=== PATIENT | female | born 1930 | race Caucasian/White ===

== ENCOUNTER 2016-10-01 11:35 | Emergency (ER) | payer OTHER ==
[~2016-10-01] VITALS: Ht 165.1 cm; Wt 78.0 kg
[2016-10-01 11:41] VITALS: TEMP 36.9; Ht 165.1 cm; Wt 78.0 kg
[2016-10-01 11:47] VITALS: O2SAT 100
[2016-10-01 12:00] LABS: BASO % 0.2 %; BASO ABS # 0.02 K/uL (0-0.2); COMPLETE YES; EOS % 0.5 %; HEMATOCRIT 35.2 % (37-47); IG% 0.3 %; LYMPH % 30.8 %; LYMPH ABS # 3.05 K/uL (1.2-3.4); MEAN CELL VOLUME 83.4 fL (80-100); MEAN CORPUSCULAR HEMOGLOBIN 27.7 pg (25-34); MEAN CORPUSCULAR HGB CONC 33.2 g/dl (32-36); MEAN PLATELET VOLUME 9.3 fL (7.4-10.4); MONO % 6.5 %; NEUT % 61.7 %; PLATELET COUNT 367 K/uL (130-400); RED BLOOD COUNT 4.22 M/uL (4.2-5.4)
--- NOTE | 2016-10-01 12:04 | DIAGNOSTIC IMAGING REPORT ---
SINGLE VIEW CHEST CLINICAL HISTORY: Fever. Sepsis. FINDINGS: An AP, portable, upright chest radiograph is obtained. No prior studies are available for comparison at the time of dictation. The examination is degraded by portable technique and patient rotation. The heart is enlarged and there is atherosclerotic calcification of the thoracic aorta. The pulmonary vasculature is noncongested. Nonspecific interstitial thickening is likely chronic. There is minimal bibasilar atelectasis. The lungs and pleural spaces are otherwise clear. No pneumothorax is seen. The skeletal structures are osteopenic. Degenerative change is noted throughout the thoracic spine. IMPRESSION: Cardiomegaly with no acute cardiopulmonary abnormality. Electronically signed by: Real Salazar M.D. 10/01/2016 12:03 PM Dictated Date/Time: 10/01/2016 12:02 PM
[2016-10-01 12:11] LABS: PROTHROMBIN TIME (PATIENT) 10.4 SECONDS (9.0-12.0)
[2016-10-01 12:22] LABS: ALT/SGPT 20 U/L (12-78); AST/SGOT 14 U/L (15-37); BLOOD UREA NITROGEN 19 mg/dl (7-18); BUN/CREATININE RATIO 22.2 (10-20); CALCIUM 9.5 mg/dl (8.5-10.1); CARBON DIOXIDE 26 mmol/L (21-32); CHLORIDE 103 mmol/L (98-107); CREATININE 0.84 mg/dl (0.60-1.20); GLUCOSE 110 mg/dl (70-99); POTASSIUM 3.5 mmol/L (3.5-5.1); SODIUM 140 mmol/L (136-145)
[2016-10-01 12:27] LABS: ALKALINE PHOSPHATASE 78 U/L (45-117); CKMB/CK RATIO 1.9 (0-3.0)
[2016-10-01] MEDS ORDERED: MULT-614 PO (12:35)
[2016-10-01] MEDS ORDERED: ASPCH81X PO (12:35)
[2016-10-01] MEDS ORDERED: MULT-190 PO (12:35)
--- NOTE | 2016-10-01 13:53 | EMERGENCY ROOM VISIT NOTE ---
History Report prepared by Waldo: Luann Spicer Under the Supervision of: Dr. James Ulloa D.O. First contact with patient: 11:43 Chief Complaint: CHEST PAIN Stated Complaint: CHESTPAIN History of Present Illness The patient is a 85 year old female who presents to the Emergency Room with complaints of an episode of chest pain that occurred this morning at 1030AM. The patient states that she was sitting at [employer] when she noticed sharp pain above her sternum. She waited until the service was finished and had a friend take her to the ED. The pain lasted about 25 minutes before resolving on its own. Currently, she is not in any pain and does not have any other complaints. The patient has a history of acid reflux but states that the pain today did not feel similar to acid reflux. The patient notes that she had a Prednisone injection in her left knee 2 days ago for chronic knee pain. Source of History: patient Onset: this morning at 1030AM Position: chest Quality: sharp Timing: resolved Review of Systems See HPI for pertinent positives & negatives. A total of 10 systems reviewed and were otherwise negative. Past Medical & Surgical Medical Problems: (1) Acid reflux Family History No pertinent family history stated. Social History Smoking Status: Never Smoker Marital Status: Occupation Status: retired Current/Historical Medications Scheduled Amlodipine (Norvasc), 5 MG PO QAM Aspirin (Aspirin Chewable), 81 MG PO QAM Furosemide (Lasix), 20 MG PO QAM Losartan Potassium (Cozaar), 100 MG PO QAM Metformin Hcl (Glucophage), 1,000 MG PO BID Multiple Vitamins W/ Minerals (Centrum Silver Ultra [place]), 1 TAB PO DAILY Ocuvite Preservision (Ocuvite Preservision), 2 TAB PO BID Psyllium (Metamucil), 1 DOSE PO AFTERNOON Allergies Coded Allergies: No Known Allergies (Unverified , 10/01/16) Physical Exam Vital Signs Date Time Temp Pulse Resp B/P Pulse Ox O2 Delivery O2 Flow Rate FiO2 10/01/16 13:09 60 20 158/72 99 10/01/16 12:08 68 10/01/16 11:47 100 Room Air 10/01/16 11:45 98 Room Air 10/01/16 11:45 98 Room Air 10/01/16 11:41 36.9 95 22 187/69 98 Room Air Physical Exam CONSTITUTIONAL/VITAL SIGNS: Reviewed / noted above. GENERAL: Non-toxic in appearance. INTEGUMENTARY: Warm, dry, and [place]. HEAD: Normocephalic. EYES: without scleral icterus or trauma. ENT/OROPHARYNX: clear and moist. LYMPHADENOPATHY/NECK: Is supple without lymphadenopathy or meningismus. RESPIRATORY: Lungs clear and equal. CARDIOVASCULAR: Regular rate and rhythm. GI/ABDOMEN: Soft and nontender. No organomegaly or pulsatile mass. No rebound or guarding. Normal bowel sounds. EXTREMITIES: Warm and well perfused. BACK: No CVA tenderness. NEUROLOGICAL: Intact without focal deficits. PSYCHIATRIC: normal affect. MUSCULOSKELETAL: Normally developed with good muscle tone. Medical Decision & Procedures ER Provider Diagnostic Interpretation: Radiology results as stated below per my review and radiologist interpretation: SINGLE VIEW CHEST CLINICAL HISTORY: Fever. Sepsis. FINDINGS: An AP, portable, upright chest radiograph is obtained. No prior studies are available for comparison at the time of dictation. The examination is degraded by portable technique and patient rotation. The heart is enlarged and there is atherosclerotic calcification of the thoracic aorta. The pulmonary vasculature is noncongested. Nonspecific interstitial thickening is likely chronic. There is minimal bibasilar atelectasis. The lungs and pleural spaces are otherwise clear. No pneumothorax is seen. The skeletal structures are osteopenic. Degenerative change is noted throughout the thoracic spine. IMPRESSION: Cardiomegaly with no acute cardiopulmonary abnormality. Electronically signed by: Real Salazar M.D. 10/01/2016 12:03 PM Dictated Date/Time: 10/01/2016 12:02 PM Laboratory Results 10/01/16 11:45 Red Blood Count 4.22, Mean Corpuscular Volume 83.4, Mean Corpuscular Hemoglobin 27.7, Mean Corpuscular Hemoglobin Concent 33.2, Mean Platelet Volume 9.3, Neutrophils (%) (Auto) 61.7, Lymphocytes (%) (Auto) 30.8, Monocytes (%) (Auto) 6.5, Eosinophils (%) (Auto) 0.5, Basophils (%) (Auto) 0.2, Neutrophils # (Auto) 6.11, Lymphocytes # (Auto) 3.05, Monocytes # (Auto) 0.64, Eosinophils # (Auto) 0.05, Basophils # (Auto) 0.02 10/01/16 11:45 Test 10/01/16 11:45 White Blood Count 9.90 K/uL (4.8-10.8) Red Blood Count 4.22 M/uL (4.2-5.4) Hemoglobin 11.7 g/dL (12.0-16.0) Hematocrit 35.2 % (37-47) Mean Corpuscular Volume 83.4 fL (80-100) Mean Corpuscular Hemoglobin 27.7 pg (25-34) Mean Corpuscular Hemoglobin Concent 33.2 g/dl (32-36) Platelet Count 367 K/uL (130-400) Mean Platelet Volume 9.3 fL (7.4-10.4) Neutrophils (%) (Auto) 61.7 % Lymphocytes (%) (Auto) 30.8 % Monocytes (%) (Auto) 6.5 % Eosinophils (%) (Auto) 0.5 % Basophils (%) (Auto) 0.2 % Neutrophils # (Auto) 6.11 K/uL (1.4-6.5) Lymphocytes # (Auto) 3.05 K/uL (1.2-3.4) Monocytes # (Auto) 0.64 K/uL (0.11-0.59) Eosinophils # (Auto) 0.05 K/uL (0-0.5) Basophils # (Auto) 0.02 K/uL (0-0.2) RDW Standard Deviation 44.0 fL (36.4-46.3) RDW Coefficient of Variation 14.4 % (11.5-14.5) Immature Granulocyte % (Auto) 0.3 % Immature Granulocyte # (Auto) 0.03 K/uL (0.00-0.02) Prothrombin Time 10.4 SECONDS (9.0-12.0) Prothromb Time International Ratio 1.0 (0.9-1.1) Activated Partial Thromboplast Time 26.0 SECONDS (21.0-31.0) Partial Thromboplastin Ratio 1.0 Anion Gap 11.0 mmol/L (3-11) Est Creatinine Clear Calc Drug Dose 52.4 ml/min Estimated GFR () 74.5 Estimated GFR (Non- 64.3 BUN/Creatinine Ratio 22.2 (10-20) Calcium Level 9.5 mg/dl (8.5-10.1) Total Bilirubin 0.9 mg/dl (0.2-1) Direct Bilirubin 0.2 mg/dl (0-0.2) Aspartate Amino Transf (AST/SGOT) 14 U/L (15-37) Alanine Aminotransferase (ALT/SGPT) 20 U/L (12-78) Alkaline Phosphatase 78 U/L (45-117) Total Creatine Kinase 79 U/L (26-192) Creatine Kinase MB 1.5 ng/ml (0.5-3.6) Creatine Kinase MB Ratio 1.9 (0-3.0) Troponin I < 0.015 ng/ml (0-0.045) Total Protein 8.7 gm/dl (6.4-8.2) Albumin 4.5 gm/dl (3.4-5.0) Lipase 120 U/L (73-393) Laboratory results as stated above per my review. ECG Indication: chest pain Rate (beats per minute): 100 Rhythm: sinus rhythm Findings: no ectopy, other (no acute injury) ED Course 1145: The patient was evaluated in room A11. A complete history and physical examination was performed. 1353: On reevaluation, the patient is resting comfortably. I discussed the results and findings with the patient. She verbalized agreement of the treatment plan. The patient was discharged home. Medical Decision the differential was considered includes acute myocardial infarction, acute coronary syndrome, myocarditis, pericarditis, pericardial effusions /tamponad, esophageal perforation, thoracic aortic dissection, pulmonary embolism, pneumonia, pneumothorax, pancreatitis, shingles, acute cholecystitis, perforated abdominal viscus. This is an 85-year-old female who presents to the ED with a chief complaint of a sudden sharp chest pain that occurred while the patient was sitting in [employer]. It lasted for about 20 minutes and resolved on its own without treatment. The patient states it occurred around 10:30 AM. She came in for evaluation. She denies any symptoms since that time. She denied any associated symptoms such as shortness of breath, lightheadedness, dizziness or palpitations. Her exam here is normal. Her vital signs are stable. EKG shows a sinus rhythm at a rate of 100 without acute injury or ectopy. CBC and complete metabolic panel were unremarkable. Troponin is negative. Lipase is negative. Chest x-ray did not show acute disease. The patient was told results the test. She did not have any recurrence of her symptoms started ED stay. She is felt to be stable for discharge. Impression Primary Impression: Retrosternal chest pain Scribe Attestation The scribe's documentation has been prepared under my direction and personally reviewed by me in its entirety. I confirm that the note above accurately reflects all work, treatment, procedures, and medical decision making performed by me. Departure Information Dispostion Home / Self-Care Referrals Hadley Quinn M.D. (PCP) Patient Instructions Chest Pain - [facility], [facility] Additional Instructions Follow-up with your doctor for further care and evaluation in 1-2 days. Return to the emergency department for worsening or new symptoms or any concerns. You have been examined and treated today on an emergency basis only. This is not a substitute for, or an effort to provide, complete comprehensive medical care. It is impossible to recognize and treat all injuries or illnesses in a single emergency department visit. It is therefore important that you follow up closely with your doctor. Call as soon as possible for an appointment.
[2016-10-01 14:21] VITALS: BP 193/59; PULSE 82; O2SAT 100
[2017-02-27] MEDS ORDERED: AFLI2INJ INJ (07:47)
[2017-02-27] MEDS ORDERED: MULT-190 PO (07:47)
[2017-02-27] MEDS ORDERED: RANI150T3 PO (07:47)
[2017-02-27] MEDS ORDERED: GLIP5TAB11 PO (07:47)
[2017-02-27] MEDS ORDERED: MULT-506 PO (11:40)
[2017-02-27] MEDS ORDERED: ASPI81TA28 PO (11:40)
[2017-02-27] MEDS ORDERED: PSYL48.59 PO (12:35)
[2017-02-27] MEDS ORDERED: LOSA1TAB38 PO (12:35)
[2017-02-27] MEDS ORDERED: METF-384 PO (12:35)
[2017-02-27] MEDS ORDERED: FURO-85 PO (12:35)
[2017-02-27] MEDS ORDERED: AMLO-110 PO (12:35)
== END 2016-10-01 14:21 | disposition home or self-care (01) ==
LOC: C.EDB 11:37 → C.EDA 14:21
DX: R07.2 Precordial pain (principal); K21.9 Gastro-esophageal reflux disease without esophagitis

== ENCOUNTER 2017-02-22 07:14 | Emergency (ER) | payer OTHER ==
[~2017-02-22] VITALS: Ht 165.1 cm; Wt 77.6 kg
[~2017-02-22 07:14] MED LIST: ASPCH81X PO; MULT-190 PO; MULT-614 PO
[2017-02-22 07:21] VITALS: TEMP 36.8; Ht 165.1 cm; Wt 77.6 kg
[2017-02-22] MEDS ORDERED: FENTANYL CITRATE INJ 50 MCG/1 ML 2 ML VIAL IV STA (07:39)
[2017-02-22] MEDS ORDERED: ONDANSETRON INJ 2 MG/ML 2 ML VIAL IV STA (07:39)
[2017-02-22] MEDS ORDERED: LORAZEPAM 2 MG/ML 1 ML VIAL IV STA (07:39)
[2017-02-22] MEDS ORDERED: SODIUM CHLORIDE 0.9% 1000ML 1,000 ML IV STA (07:39)
--- NOTE | 2017-02-22 07:45 | EMERGENCY ROOM VISIT NOTE ---
History Report prepared by Waldo: Vasquez Kinsey Under the Supervision of: Dr. Richelle Perez M.D. First contact with patient: 07:28 Chief Complaint: BACK PAIN Stated Complaint: BACK PAIN DOWN LEG History of Present Illness The patient is an 86 year old female with a history of diabetes and hypertension who presents to the Emergency Room with complaints of worsening low right-sided back pain that started 3 days ago. She says that the pain becomes much worse at night, and makes it hard for her to sleep. The patient states that she tried to get an appointment with her doctor for the pain, but could not get one until next week. She notes that overnight, the pain started radiating down into her right grown. She says that the pain did not shoot down her leg. The patient does not recall any injury that would cause the pain. She adds that she felt a little nauseous this morning so she did not take her daily medications. The patient did not vomit however. She denies any fevers, cough, rashes or urinary symptoms. Source of History: patient Onset: 3 days ago Position: back (lower right) Timing: worsening Associated Symptoms: + nausea, No fevers, No cough, No vomiting, No urinary symptoms, No rash Note: Associated symptoms: Pain radiating to right groin area. Does not recall injury. Review of Systems See HPI for pertinent positives & negatives. A total of 10 systems reviewed and were otherwise negative. Past Medical & Surgical Medical Problems: (1) Acid reflux (2) Diabetes (3) HTN (hypertension) Family History Family history omitted secondary to patient's advanced age. Social History Smoking Status: Former Smoker Marital Status: Occupation Status: retired Current/Historical Medications Scheduled Aflibercept (Eylea), 1 INJ UD Amlodipine (Norvasc), 5 MG PO QAM Aspirin (Aspirin Chewable), 81 MG PO QAM Furosemide (Lasix), 20 MG PO QAM Glucostix Blood Test Strips (Onetouch Ultra Blue), 1 DAILY Losartan Potassium (Cozaar), 100 MG PO QAM Metformin Hcl (Glucophage), 1,000 MG PO BID Multiple Vitamins W/ Minerals (Centrum Silver Ultra [place]), 1 TAB PO DAILY Ocuvite Preservision (Ocuvite Preservision), 2 TAB PO BID Ocuvite Preservision (Ocuvite Preservision), 1 TAB PO BID Psyllium (Metamucil), 1 DOSE PO AFTERNOON Scheduled PRN Glipizide (Glucotrol), 5 MG PO QAM PRN for BLOOD SUGAR Ranitidine Hcl (Zantac), 150 MG PO BID PRN for Heartburn Allergies Coded Allergies: No Known Allergies (Unverified , 02/22/17) Physical Exam Vital Signs Date Time Temp Pulse Resp B/P (MAP) Pulse Ox O2 Delivery O2 Flow Rate FiO2 02/22/17 10:38 69 18 178/97 96 Room Air 02/22/17 09:54 63 16 175/76 99 Room Air 02/22/17 08:20 64 18 157/81 98 Room Air 02/22/17 07:58 98 Room Air 02/22/17 07:50 69 02/22/17 07:21 36.8 74 18 191/74 99 Room Air Physical Exam Vital signs reviewed. General: Elderly but well-appearing 86 year old female, in no distress. HEENT: No scleral icterus, PERRLA, neck supple. Atraumatic. Cardiovascular: Regular rate and rhythm, no extra sounds. Pulmonary: Clear to auscultation bilaterally, normal work of breathing. Abdomen: Soft, nontender, nondistended, positive bowel sounds. Musculoskeletal: No tenderness along thoracic or lumbosacral spine. No stepoff or deformity. Mild right CVA tenderness. Neurologic: Patient awake alert and oriented x 3, full strength in all 4 extremities. Skin: Warm, dry, no rash Medical Decision & Procedures ER Provider Diagnostic Interpretation: CT results as stated below per my review and radiologist interpretation: LUMBAR SPINE WITHOUT CLINICAL HISTORY: 86 years-old Female presenting with right lower quadrant, right flank, and low back pain radiating into the right groin. TECHNIQUE: Multidetector CT of the lumbar spine was performed without the use of intravenous contrast. IV contrast: None. A dose lowering technique was used consistent with the principles of ALARA (as low as reasonably achievable). COMPARISON: None. CT DOSE (mGy.cm): The estimated cumulative dose is 1433.01 mGy.cm. FINDINGS: [employer] topogram: Cholecystectomy clips. Atherosclerosis of the aortic arch. Mild cardiomegaly. Slight straightening of normal lumbar lordosis at L1 to. Vertebral body heights are essentially maintained. Minimal retrolisthesis of L2 on L3 likely degenerative in etiology. No acute fracture or acute subluxation. Multilevel degenerative changes noted at every level further detailed below: T12-L1: Minimal disc bulge. No significant neural foraminal or spinal canal stenosis. L1-2: Mild disc bulge results in mild bilateral neural foraminal narrowing. Only minimal effacement of the ventral thecal sac results. L2-3: Moderate disc bulge with ligamentum flavum thickening and facet arthropathy results in mild bilateral neural foraminal narrowing and moderate effacement of the ventral thecal sac. L3-4: Moderate disc bulge in combination with facet hypertrophy and ligamentum flavum thickening result in moderate bilateral neural foraminal narrowing, worse on the right and moderate circumferential effacement of the thecal sac. L4-5: Mild disc bulge with facet hypertrophy and ligamentum flavum thickening result in moderate right and mild left neural foraminal narrowing. No significant spinal canal stenosis. L5-S1: Minimal disc bulge. Facet hypertrophy with minimal neuroforaminal narrowing. Paraspinal musculature within normal limits. Atherosclerosis noted. IMPRESSION: 1. No acute osseous injury of the lumbar spine. 2. Multilevel degenerative changes with varying degrees of neural foraminal and spinal canal stenosis as detailed above. Electronically signed by: Raymond Velazquez M.D. 02/22/2017 8:32 AM Dictated Date/Time: 02/22/2017 8:[address] SCAN OF THE ABDOMEN AND PELVIS WITHOUT IV CONTRAST CLINICAL HISTORY: Right flank pain. COMPARISON STUDY: No priors. TECHNIQUE: CT scan of the abdomen and pelvis is performed from the lung bases to the proximal femora. Images are reviewed in the axial, sagittal, and coronal planes. IV contrast was not administered for this examination. Automated dose control exposure was utilized. A dose lowering technique was utilized adhering to the principles of ALARA. FINDINGS: Lung bases: The heart is enlarged and there is a small pericardial effusion. The coronary arteries and mitral annulus are densely calcified. There are trace pleural effusions. The lung bases are otherwise clear. There is a tiny hiatal hernia. Liver: The unenhanced liver is normal in size, contour, and attenuation. There is no intrahepatic biliary ductal dilatation. Gallbladder: Surgically absent noting clips in the gallbladder fossa. Spleen: Normal in size and attenuation. Pancreas: There is moderate fatty atrophy of the pancreas. Adrenal glands: Unremarkable. Kidneys: The unenhanced kidneys are atrophic and without hydronephrosis. A small extrarenal pelvis is seen on the right. There is mild fullness of the right renal collecting system. There are no renal calculi identified. There is no evidence of contour deforming renal mass lesion. Abdominal vasculature: The abdominal aorta is normal in course and caliber. Bowel: The small bowel and colon are normal in course and caliber. There is moderate colonic fecal retention. The appendix is not identified and reported surgically absent. Peritoneum: There is no intraperitoneal free air or abdominal ascites. There is evidence of previous ventral hernia repair in the pelvis with diastases of the rectus musculature. Lymphadenopathy: None. Pelvic viscera: The bladder is normal as visualized. The uterus is surgically absent. No adnexal lesion is seen. Skeletal structures: The skeletal structures are osteopenic. There is moderate lumbosacral spondylosis. A hemitransitional left lumbosacral segment is incidentally noted. No lytic or blastic lesions are seen. IMPRESSION: 1. There is mild fullness the right renal collecting system without clear evidence of hydronephrosis. This is nonspecific and may represent the sequelae of a recently passed kidney stone. No obstructing stone is seen at the time of examination. Correlation with clinical findings and urinalysis will be required. 2. No additional infectious or inflammatory findings are seen in the abdomen or pelvis. 3. Cardiomegaly and small pericardial effusion. 4. Additional findings as above. Electronically signed by: Real Salazar M.D. 02/22/2017 8:32 AM Dictated Date/Time: 02/22/2017 8:22 AM Laboratory Results 02/22/17 07:50 Red Blood Count 4.16, Mean Corpuscular Volume 84.1, Mean Corpuscular Hemoglobin 28.1, Mean Corpuscular Hemoglobin Concent 33.4, Mean Platelet Volume 9.9, Neutrophils (%) (Auto) 78.0, Lymphocytes (%) (Auto) 16.6, Monocytes (%) (Auto) 4.8, Eosinophils (%) (Auto) 0.2, Basophils (%) (Auto) 0.2, Neutrophils # (Auto) 7.31, Lymphocytes # (Auto) 1.56, Monocytes # (Auto) 0.45, Eosinophils # (Auto) 0.02, Basophils # (Auto) 0.02 02/22/17 07:50 Test 02/22/17 07:33 02/22/17 07:50 Urine Color YELLOW Urine Appearance CLOUDY (CLEAR) Urine pH 8.0 (4.5-7.5) Urine Specific [place] 1.017 (1.000-1.030) Urine Protein NEG (NEG) Urine Glucose (UA) NEG (NEG) Urine Ketones NEG (NEG) Urine Occult Blood NEG (NEG) Urine Nitrite NEG (NEG) Urine Bilirubin NEG (NEG) Urine Urobilinogen NEG (NEG) Urine Leukocyte Esterase NEG (NEG) Urine WBC (Auto) 1-5 /hpf (0-5) Urine RBC (Auto) 0-4 /hpf (0-4) Urine Hyaline Casts (Auto) 1-5 /lpf (0-5) Urine Epithelial Cells (Auto) >30 /lpf (0-5) Urine Bacteria (Auto) NEG (NEG) White Blood Count 9.38 K/uL (4.8-10.8) Red Blood Count 4.16 M/uL (4.2-5.4) Hemoglobin 11.7 g/dL (12.0-16.0) Hematocrit 35.0 % (37-47) Mean Corpuscular Volume 84.1 fL (80-100) Mean Corpuscular Hemoglobin 28.1 pg (25-34) Mean Corpuscular Hemoglobin Concent 33.4 g/dl (32-36) Platelet Count 292 K/uL (130-400) Mean Platelet Volume 9.9 fL (7.4-10.4) Neutrophils (%) (Auto) 78.0 % Lymphocytes (%) (Auto) 16.6 % Monocytes (%) (Auto) 4.8 % Eosinophils (%) (Auto) 0.2 % Basophils (%) (Auto) 0.2 % Neutrophils # (Auto) 7.31 K/uL (1.4-6.5) Lymphocytes # (Auto) 1.56 K/uL (1.2-3.4) Monocytes # (Auto) 0.45 K/uL (0.11-0.59) Eosinophils # (Auto) 0.02 K/uL (0-0.5) Basophils # (Auto) 0.02 K/uL (0-0.2) RDW Standard Deviation 43.3 fL (36.4-46.3) RDW Coefficient of Variation 14.2 % (11.5-14.5) Immature Granulocyte % (Auto) 0.2 % Immature Granulocyte # (Auto) 0.02 K/uL (0.00-0.02) Anion Gap 7.0 mmol/L (3-11) Est Creatinine Clear Calc Drug Dose 49.6 ml/min Estimated GFR () 70.9 Estimated GFR (Non- 61.2 BUN/Creatinine Ratio 17.9 (10-20) Calcium Level 9.5 mg/dl (8.5-10.1) Total Bilirubin 0.8 mg/dl (0.2-1) Direct Bilirubin 0.1 mg/dl (0-0.2) Aspartate Amino Transf (AST/SGOT) 22 U/L (15-37) Alanine Aminotransferase (ALT/SGPT) 18 U/L (12-78) Alkaline Phosphatase 76 U/L (45-117) Total Protein 7.8 gm/dl (6.4-8.2) Albumin 4.0 gm/dl (3.4-5.0) Laboratory results per my review. Medications Administered Medications (Trade) Dose Ordered Sig/Ajay Route Start Time Stop Time Status Last Admin Dose Admin Sodium Chloride 1,000 ml @ 125 mls/hr Q8H STAT IV 02/22/17 07:39 02/22/17 11:30 DC 02/22/17 07:55 125 MLS/HR Ondansetron HCl (Zofran Inj) 4 mg NOW STAT IV 02/22/17 07:39 02/22/17 07:42 DC 02/22/17 07:56 4 MG Fentanyl Citrate (Fentanyl Inj) 25 mcg NOW STAT IV 02/22/17 07:39 02/22/17 07:42 DC 02/22/17 07:56 25 MCG Lorazepam (Ativan Inj) 0.5 mg NOW STAT IV 02/22/17 07:39 02/22/17 07:42 DC 02/22/17 07:56 0.5 MG ED Course 0737: Past medical records reviewed. The patient was evaluated in room B3B. A complete history and physical examination was performed. 0739: Ordered Ativan Inj 0.5 mg IV, Fentanyl Inj 25 mcg IV, Zofran Inj 4 mg IV, NSS 1000 ml @ 125 mls/hr IV. 1012: Upon reevaluation, the patient appeared to have improvement of her symptoms. I discussed findings with her. She verbalized agreement of the treatment plan. She was discharged home. 1245: I talked to the patient's son, Rohan, and informed him about his mother's situation. Medical Decision Differential diagnosis: Etiologies such as renal colic, appendicitis, diverticulitis, mesenteric ischemia, aortic pathology, infections, inflammatory bowel disease, PUD, biliary pathology, UTI, compression fracture, as well as others were entertained. This patient was evaluated and appeared to be in no significant distress. IV access was obtained and laboratory work was drawn. Patient was medicated with IV fentanyl, IV Zofran and IV Ativan for her discomfort. She was hydrated gently with normal saline solution. CT scan of the abdomen and pelvis was performed with lumbar spine reconstructions. There is a right-sided hydronephrosis without an obvious obstructing stone. There is no significant acute injury of the lumbar spine. Urinalysis is clear. At this time the etiology of the patient's symptoms is unclear. Either she passed a kidney stone with no microscopic blood and no stone visualized weren't this is a musculoskeletal pain. I did speak with the patient's son via phone as well as the patient and her friend at the bedside. I recommended follow-up with the PCP in one to 2 weeks for renal ultrasound. If hydronephrosis remains, a urologic consultation may be advice. She will use Tylenol as needed for further discomfort. She will return to the ER for worsening of symptoms or any medical concerns. Medication Reconcilliation Current Medication List: was personally reviewed by me Blood Pressure Screening Patient's blood pressure: Elevated blood pressure Blood pressure disposition: Elevated BP felt to be situational Impression Primary Impression: Hydronephrosis, right Scribe Attestation The scribe's documentation has been prepared under my direction and personally reviewed by me in its entirety. I confirm that the note above accurately reflects all work, treatment, procedures, and medical decision making performed by me. Departure Information Dispostion Home / Self-Care Referrals Hadley Quinn M.D. (PCP) Forms HOME CARE DOCUMENTATION FORM, IMPORTANT VISIT INFORMATION Patient Instructions My [facility] Additional Instructions Diagnosis: Right hydronephrosis Please follow-up with your primary care physician within the next 1-2 weeks for reevaluation. You may warrant an ultrasound of the kidneys to see if the right kidney remained swollen. At that time your primary care physician may refer you to urology for further workup. Tylenol 650 mg every 6 hours as needed for pain. Return to the emergency department for worsening of symptoms or any medical concerns.
[2017-02-22] MEDS ORDERED: GLUC-221 (07:47)
[2017-02-22 07:58] VITALS: O2SAT 98
[2017-02-22 08:07] LABS: URINE APPEARANCE CLOUDY (CLEAR); URINE BILIRUBIN NEG (NEG); URINE COLOR YELLOW; URINE EPITHELIAL CELL AUTO >30 /lpf (0-5); URINE NITRITE NEG (NEG); URINE SPECIFIC GRAVITY 1.017 (1.000-1.030); UROBILINOGEN NEG (NEG); ZZUR CULT IF INDIC CLEAN CATCH NO
[2017-02-22 08:14] LABS: BASO % 0.2 %; BASO ABS # 0.02 K/uL (0-0.2); COMPLETE YES; EOS % 0.2 %; IG% 0.2 %; LYMPH % 16.6 %; LYMPH ABS # 1.56 K/uL (1.2-3.4); MEAN CELL VOLUME 84.1 fL (80-100); MEAN CORPUSCULAR HEMOGLOBIN 28.1 pg (25-34); MEAN CORPUSCULAR HGB CONC 33.4 g/dl (32-36); MEAN PLATELET VOLUME 9.9 fL (7.4-10.4); MONO % 4.8 %; PLATELET COUNT 292 K/uL (130-400); RED BLOOD COUNT 4.16 M/uL (4.2-5.4); WHITE BLOOD COUNT 9.38 K/uL (4.8-10.8)
[2017-02-22 08:21] LABS: MANUAL MICROSCOPIC REQUIRED? NO; REVIEW REQ? NO
[2017-02-22 08:22] LABS: SULFASALICYLIC ACID NEG (NEG)
[2017-02-22 08:30] LABS: BUN/CREATININE RATIO 17.9 (10-20); CALCIUM 9.5 mg/dl (8.5-10.1); CREATININE 0.87 mg/dl (0.60-1.20); POTASSIUM 3.7 mmol/L (3.5-5.1)
--- NOTE | 2017-02-22 08:33 | DIAGNOSTIC IMAGING REPORT ---
LUMBAR SPINE WITHOUT CLINICAL HISTORY: 86 years-old Female presenting with right lower quadrant, right flank, and low back pain radiating into the right groin. TECHNIQUE: Multidetector CT of the lumbar spine was performed without the use of intravenous contrast. IV contrast: None. A dose lowering technique was used consistent with the principles of ALARA (as low as reasonably achievable). COMPARISON: None. CT DOSE (mGy.cm): The estimated cumulative dose is 1433.01 mGy.cm. 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 Atherosclerosis of the aortic arch. Mild cardiomegaly. Slight straightening of normal lumbar lordosis at L1 to. Vertebral body heights are essentially maintained. Minimal retrolisthesis of L2 on L3 likely degenerative in etiology. No acute fracture or acute subluxation. Multilevel degenerative changes noted at every level further detailed below: T12-L1: Minimal disc bulge. No significant neural foraminal or spinal canal stenosis. L1-2: Mild disc bulge results in mild bilateral neural foraminal narrowing. Only minimal effacement of the ventral thecal sac results. L2-3: Moderate disc bulge with ligamentum flavum thickening and facet arthropathy results in mild bilateral neural foraminal narrowing and moderate effacement of the ventral thecal sac. L3-4: Moderate disc bulge in combination with facet hypertrophy and ligamentum flavum thickening result in moderate bilateral neural foraminal narrowing, worse on the right and moderate circumferential effacement of the thecal sac. L4-5: Mild disc bulge with facet hypertrophy and ligamentum flavum thickening result in moderate right and mild left neural foraminal narrowing. No significant spinal canal stenosis. L5-S1: Minimal disc bulge. Facet hypertrophy with minimal neuroforaminal narrowing. Paraspinal musculature within normal limits. Atherosclerosis noted. IMPRESSION: 1. No acute osseous injury of the lumbar spine. 2. Multilevel degenerative changes with varying degrees of neural foraminal and spinal canal stenosis as detailed above. Electronically signed by: Raymond Velazquez M.D. 02/22/2017 8:32 AM Dictated Date/Time: 02/22/2017 8:24 AM
--- NOTE | 2017-02-22 08:34 | DIAGNOSTIC IMAGING REPORT ---
CT SCAN OF THE ABDOMEN AND PELVIS WITHOUT IV CONTRAST CLINICAL HISTORY: Right flank pain. COMPARISON STUDY: No priors. TECHNIQUE: CT scan of the abdomen and pelvis is performed from the lung bases to the proximal femora. Images are reviewed in the axial, sagittal, and coronal planes. IV contrast was not administered for this examination. Automated dose control exposure was utilized. A dose lowering technique was utilized adhering to the principles of ALARA. FINDINGS: Lung bases: The heart is enlarged and there is a small pericardial effusion. The coronary arteries and mitral annulus are densely calcified. There are trace pleural effusions. The lung bases are otherwise clear. There is a tiny hiatal hernia. Liver: The unenhanced liver is normal in size, contour, and attenuation. There is no intrahepatic biliary ductal dilatation. Gallbladder: Surgically absent noting clips in the gallbladder fossa. Spleen: Normal in size and attenuation. Pancreas: There is moderate fatty atrophy of the pancreas. Adrenal glands: Unremarkable. Kidneys: The unenhanced kidneys are atrophic and without hydronephrosis. A small extrarenal pelvis is seen on the right. There is mild fullness of the right renal collecting system. There are no renal calculi identified. There is no evidence of contour deforming renal mass lesion. Abdominal vasculature: The abdominal aorta is normal in course and caliber. Bowel: The small bowel and colon are normal in course and caliber. There is moderate colonic fecal retention. The appendix is not identified and reported surgically absent. Peritoneum: There is no intraperitoneal free air or abdominal ascites. There is evidence of previous ventral hernia repair in the pelvis with diastases of the rectus musculature. Lymphadenopathy: None. Pelvic viscera: The bladder is normal as visualized. The uterus is surgically absent. No adnexal lesion is seen. Skeletal structures: The skeletal structures are osteopenic. There is moderate lumbosacral spondylosis. A hemitransitional left lumbosacral segment is incidentally noted. No lytic or blastic lesions are seen. IMPRESSION: 1. There is mild fullness the right renal collecting system without clear evidence of hydronephrosis. This is nonspecific and may represent the sequelae of a recently passed kidney stone. No obstructing stone is seen at the time of examination. Correlation with clinical findings and urinalysis will be required. 2. No additional infectious or inflammatory findings are seen in the abdomen or pelvis. 3. Cardiomegaly and small pericardial effusion. 4. Additional findings as above. Electronically signed by: Real Salazar M.D. 02/22/2017 8:32 AM Dictated Date/Time: 02/22/2017 8:22 AM
[2017-02-22 10:38] VITALS: BP 178/97; PULSE 69; O2SAT 96
[2017-02-27] MEDS ORDERED: AFLI2INJ INJ (07:47)
[2017-02-27] MEDS ORDERED: RANI150T3 PO (07:47)
[2017-02-27] MEDS ORDERED: MULT-190 PO (07:47)
[2017-02-27] MEDS ORDERED: GLIP5TAB11 PO (07:47)
[2017-02-27] MEDS ORDERED: MULT-506 PO (11:40)
[2017-02-27] MEDS ORDERED: ASPI81TA28 PO (11:40)
[2017-02-27] MEDS ORDERED: LOSA1TAB38 PO (12:35)
[2017-02-27] MEDS ORDERED: AMLO-110 PO (12:35)
[2017-02-27] MEDS ORDERED: FURO-85 PO (12:35)
[2017-02-27] MEDS ORDERED: PSYL48.59 PO (12:35)
[2017-02-27] MEDS ORDERED: METF-384 PO (12:35)
== END 2017-02-22 10:46 | disposition home or self-care (01) ==
LOC: C.EDB 07:15
DX: N13.30 Unspecified hydronephrosis (principal); E11.9 Type 2 diabetes mellitus without complications; I10 Essential (primary) hypertension; K21.9 Gastro-esophageal reflux disease without esophagitis; Z87.891 Personal history of nicotine dependence; Z79.82 Long term (current) use of aspirin; Z79.899 Other long term (current) drug therapy

== ENCOUNTER 2017-02-26 10:28 | Emergency (ER) | payer OTHER ==
[~2017-02-26] VITALS: Ht 167.6 cm; Wt 76.4 kg
[~2017-02-26 10:28] MED LIST changes: +GLUC-221
[2017-02-26 10:30] VITALS: TEMP 36.5; Ht 167.6 cm; Wt 76.4 kg
[2017-02-26] MEDS ORDERED: SODIUM CHLORIDE 0.9% 500ML 500 ML IV STA (11:22)
[2017-02-26 11:52] LABS: BASO % 0.3 %; BASO ABS # 0.02 K/uL (0-0.2); COMPLETE YES; EOS % 0.4 %; HEMATOCRIT 35.7 % (37-47); IG% 0.1 %; LYMPH ABS # 1.94 K/uL (1.2-3.4); MEAN CELL VOLUME 83.8 fL (80-100); MEAN CORPUSCULAR HEMOGLOBIN 27.7 pg (25-34); MEAN CORPUSCULAR HGB CONC 33.1 g/dl (32-36); MEAN PLATELET VOLUME 9.4 fL (7.4-10.4); MONO % 7.9 %; NEUT % 62.3 %; PLATELET COUNT 351 K/uL (130-400); RED BLOOD COUNT 4.26 M/uL (4.2-5.4); WHITE BLOOD COUNT 6.68 K/uL (4.8-10.8)
[2017-02-26 11:53] LABS: URINE APPEARANCE CLEAR (CLEAR); URINE BILIRUBIN NEG (NEG); URINE COLOR YELLOW; URINE NITRITE NEG (NEG); URINE SPECIFIC GRAVITY 1.011 (1.000-1.030); UROBILINOGEN NEG (NEG); ZZUR CULT IF INDIC CLEAN CATCH NO
[2017-02-26] MEDS ORDERED: ONDANSETRON INJ 2 MG/ML 2 ML VIAL IV STA (11:56)
[2017-02-26] MEDS ORDERED: MoRPHine SULFATE 4 MG/ML 1 ML CARP\\VIAL IV STA (11:56)
[2017-02-26 12:01] LABS: MANUAL MICROSCOPIC REQUIRED? NO; REVIEW REQ? NO
[2017-02-26 12:01] LABS: BUN/CREATININE RATIO 16.1 (10-20); CALCIUM 9.5 mg/dl (8.5-10.1); CREATININE 0.88 mg/dl (0.60-1.20); POTASSIUM 3.6 mmol/L (3.5-5.1)
[2017-02-26] MEDS ORDERED: OPTIRAY 320 IV PRN (13:00)
--- NOTE | 2017-02-26 15:09 | EMERGENCY ROOM VISIT NOTE ---
History Report prepared by Waldo: Reece Paniagua Under the Supervision of: Dr. Neil Holley D.O. First contact with patient: 11:10 Chief Complaint: BACK PAIN Stated Complaint: RIGHT SIDE BACK PAIN,RIGHT SIDE ABDOMINAL PAIN History of Present Illness The patient is an 86 year old female who presents to the Emergency Room with complaints of worsening pain in the right lower abdominal quadrant. The patient states that she has been experiencing pain in her right lower back and right abdomen for the past week, but it began to worsen this morning at 0430, 7 hours prior to arrival. The pain is now radiating into the right groin as well. She also complains of some nausea, but has not experienced any vomiting. The patient did have a normal bowel movement today, and is not having any difficulty urinating. The patient has had appendicitis in the past and states that this feels similar. However the patient has a surgical history including appendectomy, cholecystectomy, and total hysterectomy. She also denies unusual numbness/weakness in her legs, headache, change in vision, fevers, chest pain, shortness of breath, pain with urination, and melena. 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 A total of 10 systems reviewed and were otherwise negative. Past Medical & Surgical Medical Problems: (1) Acid reflux (2) Diabetes (3) HTN (hypertension) Surgical Problems: (1) Hx of appendectomy (2) Hx of cholecystectomy (3) Hx of hysterectomy, total Family History Noncontributory secondary to age. Social History Smoking Status: Never Smoker Drug Use: none Marital Status: Occupation Status: retired Current/Historical Medications Scheduled Aflibercept (Eylea), 1 INJ UD Amlodipine (Norvasc), 5 MG PO QAM Aspirin (Aspirin Ec), 81 MG PO DAILY Furosemide (Lasix), 20 MG PO QAM Losartan Potassium (Cozaar), 100 MG PO QAM Metformin Hcl (Glucophage), 1,000 MG PO BID Multivitamin (Multivitamin), 1 TAB PO DAILY Ocuvite Preservision (Ocuvite Preservision), 1 TAB PO BID Psyllium (Metamucil), 1 DOSE PO AFTERNOON Scheduled PRN Glipizide (Glucotrol), 5 MG PO QAM PRN for BLOOD SUGAR Ranitidine Hcl (Zantac), 150 MG PO BID PRN for Heartburn Allergies Coded Allergies: No Known Allergies (Unverified , 02/22/17) Physical Exam Vital Signs Date Time Temp Pulse Resp B/P (MAP) Pulse Ox O2 Delivery O2 Flow Rate FiO2 02/26/17 14:51 55 20 139/71 100 Room Air 02/26/17 12:14 61 18 179/68 100 Room Air 02/26/17 10:30 36.5 73 18 186/79 98 Room Air Physical Exam GENERAL: Sitting up in bed, alert, well appearing, well nourished, no distress, non-toxic EYE EXAM: normal conjunctiva OROPHARYNX: no exudate, no erythema, lips, buccal mucosa, and tongue normal and mucous membranes are moist NECK: supple, no nuchal rigidity, no adenopathy, non-tender LUNGS: Clear to auscultation. Normal chest wall mechanics HEART: no murmurs, S1 normal and S2 normal ABDOMEN: abdomen soft, non-tender, normo-active bowel sounds, no masses, no rebound or guarding. BACK: Back is symmetrical on inspection and there is no deformity, Acute reproducible tenderness in the right lower flank. Tenderness is tracking to the RLQ of the abdomen including the groin. No appreciable masses SKIN: no rashes and no bruising UPPER EXTREMITIES: upper extremities are grossly normal. LOWER EXTREMITIES: No pitting edema. Flexion/extension, of the hip, knee, ankle , EHL 5/5 bilaterally. Gross sensation is intact. Able to and gait without difficulty. NEURO EXAM: Normal sensorium, cranial nerves II-XII grossly intact, normal speech, no gross weakness of arms. Medical Decision & Procedures ER Provider Diagnostic Interpretation: Patient: ROBERTA HAIR Address1: [address] [place] [address] Rec: [id number] Address2: Acct ID: [id number] [facility] Zip: [place] [address] Date: 1930 Sex: F Room/Bed: Ref Phy: Hadley Quinn M.D. SC: AARON Att Phy: Report #: [id number] Apryl Phy: Hadley Quinn M.D. Test: APIV Admit Phy: Spring Inspector: LAMIN Interpreting Phy: Jaxon Ozuna MD Diagnosis: RIGHT SIDE BACK PAIN, RIGHT SIDE ABDOMINAL PAIN Ordering Phy: Neil Holley DO Service Date: 02/26/17 Admit Date: 02/26/17 MNE: [id number] CONF: DICTATED BY: Jaxon Ozuna M.D.]] CC: Neil Holley., Hadley Upton M.D. Endcc: [~ rep ct add3]] ABDOMEN AND PELVIS CT WITH IV CONTRAST CT DOSE: 491.46 mGy.cm HISTORY: Right lower quadrant abdominal pain. TECHNIQUE: Multiaxial CT images of the abdomen and pelvis were performed following the use of intravenous contrast. A dose lowering technique was utilized adhering to the principles of ALARA. COMPARISON STUDY: Abdomen and pelvis CT 02/22/2017. FINDINGS: The lung bases are clear. No pneumoperitoneum. No pneumatosis. Degenerative changes within the lumbar spine. Mitral annulus calcifications. Diastases of the lower rectus abdominis muscles with possible mesh repair of a hernia. There are few nondistended small bowel loops located at the rectus muscle diastases. Trace pleural effusions, unchanged. Cholecystectomy. The liver, spleen, adrenal glands, and pancreas are unremarkable. The kidneys enhance normally. No hydronephrosis. The bladder is unremarkable. Hysterectomy. No bowel wall thickening or obstruction. The appendix is surgically absent. IMPRESSION: 1. No change change compared to the prior study. 2. No bowel wall thickening or obstruction. 3. No hydronephrosis. 4. There is again noted diastases of the lower rectus abdominis muscles with a few small bowel loops seen at the diastases. However, these are not distended and there is no evidence for obstruction. Electronically signed by: Jaxon Ozuna M.D. 02/26/2017 3:11 PM Laboratory Results 02/26/17 11:30 Red Blood Count 4.26, Mean Corpuscular Volume 83.8, Mean Corpuscular Hemoglobin 27.7, Mean Corpuscular Hemoglobin Concent 33.1, Mean Platelet Volume 9.4, Neutrophils (%) (Auto) 62.3, Lymphocytes (%) (Auto) 29.0, Monocytes (%) (Auto) 7.9, Eosinophils (%) (Auto) 0.4, Basophils (%) (Auto) 0.3, Neutrophils # (Auto) 4.15, Lymphocytes # (Auto) 1.94, Monocytes # (Auto) 0.53, Eosinophils # (Auto) 0.03, Basophils # (Auto) 0.02 02/26/17 11:30 Test 02/26/17 11:27 02/26/17 11:30 Urine Color YELLOW Urine Appearance CLEAR (CLEAR) Urine pH 8.0 (4.5-7.5) Urine Specific [place] 1.011 (1.000-1.030) Urine Protein NEG (NEG) Urine Glucose (UA) NEG (NEG) Urine Ketones NEG (NEG) Urine Occult Blood NEG (NEG) Urine Nitrite NEG (NEG) Urine Bilirubin NEG (NEG) Urine Urobilinogen NEG (NEG) Urine Leukocyte Esterase NEG (NEG) Urine WBC (Auto) 0 /hpf (0-5) Urine RBC (Auto) 0-4 /hpf (0-4) Urine Hyaline Casts (Auto) 0 /lpf (0-5) Urine Epithelial Cells (Auto) 10-20 /lpf (0-5) Urine Bacteria (Auto) NEG (NEG) White Blood Count 6.68 K/uL (4.8-10.8) Red Blood Count 4.26 M/uL (4.2-5.4) Hemoglobin 11.8 g/dL (12.0-16.0) Hematocrit 35.7 % (37-47) Mean Corpuscular Volume 83.8 fL (80-100) Mean Corpuscular Hemoglobin 27.7 pg (25-34) Mean Corpuscular Hemoglobin Concent 33.1 g/dl (32-36) Platelet Count 351 K/uL (130-400) Mean Platelet Volume 9.4 fL (7.4-10.4) Neutrophils (%) (Auto) 62.3 % Lymphocytes (%) (Auto) 29.0 % Monocytes (%) (Auto) 7.9 % Eosinophils (%) (Auto) 0.4 % Basophils (%) (Auto) 0.3 % Neutrophils # (Auto) 4.15 K/uL (1.4-6.5) Lymphocytes # (Auto) 1.94 K/uL (1.2-3.4) Monocytes # (Auto) 0.53 K/uL (0.11-0.59) Eosinophils # (Auto) 0.03 K/uL (0-0.5) Basophils # (Auto) 0.02 K/uL (0-0.2) RDW Standard Deviation 43.3 fL (36.4-46.3) RDW Coefficient of Variation 14.3 % (11.5-14.5) Immature Granulocyte % (Auto) 0.1 % Immature Granulocyte # (Auto) 0.01 K/uL (0.00-0.02) Anion Gap 6.0 mmol/L (3-11) Est Creatinine Clear Calc Drug Dose 49.7 ml/min Estimated GFR () 69.9 Estimated GFR (Non- 60.3 BUN/Creatinine Ratio 16.1 (10-20) Calcium Level 9.5 mg/dl (8.5-10.1) Total Bilirubin 0.9 mg/dl (0.2-1) Direct Bilirubin 0.2 mg/dl (0-0.2) Aspartate Amino Transf (AST/SGOT) 13 U/L (15-37) Alanine Aminotransferase (ALT/SGPT) 19 U/L (12-78) Alkaline Phosphatase 74 U/L (45-117) Total Protein 8.0 gm/dl (6.4-8.2) Albumin 4.1 gm/dl (3.4-5.0) Lipase 130 U/L (73-393) Laboratory results per my review. Medications Administered Medications (Trade) Dose Ordered Sig/Ajay Route Start Time Stop Time Status Last Admin Dose Admin Sodium Chloride 500 ml @ 999 mls/hr Q31M STAT IV 02/26/17 11:22 02/26/17 11:52 DC 02/26/17 11:38 999 MLS/HR Morphine Sulfate (MoRPHine SULFATE INJ) 4 mg NOW STAT IV 02/26/17 11:56 02/26/17 11:57 DC 02/26/17 12:12 4 MG Ondansetron HCl (Zofran Inj) 4 mg NOW STAT IV 02/26/17 11:56 02/26/17 11:57 DC 02/26/17 12:11 4 MG ED Course ED COURSE: Vital signs were reviewed and showed Hypertensive Vitals The patients medical record was reviewed The above diagnostic studies were performed and reviewed. ED treatments and interventions as stated above. 1115: The patient was evaluated in room C8. A complete history and physical examination was performed. 1122: Ordered Sodium Chloride 500 mL @ 999 mL/hr IV. 1156: Ordered Zofran 4 mg IV, Morphine Sulfate 4 mg IV. 1300: Doing well 1517: Upon reevaluation, the patient is resting in bed.I discussed my findings with the patient and she understands and agrees with the treatment plan. Based on the patients age, coexisting illnesses, exam and lab findings the decision to treat as an outpatient was made. The patient remained stable while under my care. The patient appeared well at the time of discharge. Medical Decision Differential diagnoses includes but is not limited to lumbar radiculopathy, muscle strain, facture, cauda equina, mass, and disc herniation. Patient is an 86-year-old female who presents the ER for right lower quadrant abdominal pain which is been present for the past week. She notes that initially she had back pain which is now almost resolved and she has pain now in her right flank and worsen the right lower quadrant. Patient was evaluated late last week following a CT of the lumbar spine and CT abdomen and pelvis which was unremarkable. Today CBC along with BMP, LFTs, bilirubin and lipase were negative. UA was negative. No hematuria. Previous cholecystectomy, appendectomy and complete hysterectomy. CT of the abdomen and pelvis was repeated which was again unremarkable. Patient was given small dose of morphine with improvement of pain. I do question if this is all secondary to her spine although this would be atypical with the location in her right lower quadrant. Discussed with Pt concerning signs and symptoms to watch out for. Pt was instructed to follow up with their PCP and discussed with the patient their option to return to the ED at anytime for persistent or worsening symptoms. The appropriate anticipatory guidance and out-patient management, including indications for return to the emergency department, were explained at length to the patient and understood. Medication Reconcilliation Current Medication List: was personally reviewed by me Blood Pressure Screening Patient's blood pressure: Elevated blood pressure Impression Primary Impression: Abdominal pain Additional Impression: Flank pain Scribe Attestation The scribe's documentation has been prepared under my direction and personally reviewed by me in its entirety. I confirm that the note above accurately reflects all work, treatment, procedures, and medical decision making performed by me. Departure Information Dispostion Home / Self-Care Referrals Hadley Quinn M.D. (PCP) Forms HOME CARE DOCUMENTATION FORM, IMPORTANT VISIT INFORMATION Patient Instructions My [facility] Additional Instructions Please follow up with your primary care doctor or if you are a student, [facility] with in the next 24 hours. Any worsening of your symptoms, please return to the ED immediately. This includes any fevers greater than 100.4, worsening pain, chest pain, shortness breath, persistent nausea, vomiting, unable to eat or drink, or any other concerning signs or symptoms from your standpoint. You were given medications during this visit that will inhibit your ability to drive, operate machinery and work. Please do NOT drive, operate machinery, drink alcohol or work for the next 12hrs. You were found to have a blood pressure greater than 120 systolic over 90 diastolic. Due to the new Medicare guidelines, we are now recommending that you follow up with your primary care doctor in regards to this elevated blood pressure. Problem Qualifiers Primary Impression: Abdominal pain Abdominal location: right lower quadrant Qualified Codes: R10.31 - Right lower quadrant pain
--- NOTE | 2017-02-26 15:12 | DIAGNOSTIC IMAGING REPORT ---
ABDOMEN AND PELVIS CT WITH IV CONTRAST CT DOSE: 491.46 mGy.cm HISTORY: Right lower quadrant abdominal pain. TECHNIQUE: Multiaxial CT images of the abdomen and pelvis were performed following the use of intravenous contrast. A dose lowering technique was utilized adhering to the principles of ALARA. COMPARISON STUDY: Abdomen and pelvis CT 02/22/2017. FINDINGS: The lung bases are clear. No pneumoperitoneum. No pneumatosis. Degenerative changes within the lumbar spine. Mitral annulus calcifications. Diastases of the lower rectus abdominis muscles with possible mesh repair of a hernia. There are few nondistended small bowel loops located at the rectus muscle diastases. Trace pleural effusions, unchanged. Cholecystectomy. The liver, spleen, adrenal glands, and pancreas are unremarkable. The kidneys enhance normally. No hydronephrosis. The bladder is unremarkable. Hysterectomy. No bowel wall thickening or obstruction. The appendix is surgically absent. IMPRESSION: 1. No change change compared to the prior study. 2. No bowel wall thickening or obstruction. 3. No hydronephrosis. 4. There is again noted diastases of the lower rectus abdominis muscles with a few small bowel loops seen at the diastases. However, these are not distended and there is no evidence for obstruction. Electronically signed by: Jaxon Ozuna M.D. 02/26/2017 3:11 PM Dictated Date/Time: 02/26/2017 2:57 PM
[2017-02-26 15:41] VITALS: BP 137/75; PULSE 87; O2SAT 95
[2017-02-27] MEDS ORDERED: RANI150T3 PO (07:47)
[2017-02-27] MEDS ORDERED: GLIP5TAB11 PO (07:47)
[2017-02-27] MEDS ORDERED: MULT-190 PO (07:47)
[2017-02-27] MEDS ORDERED: AFLI2INJ INJ (07:47)
[2017-02-27] MEDS ORDERED: ASPI81TA28 PO (11:40)
[2017-02-27] MEDS ORDERED: MULT-506 PO (11:40)
[2017-02-27] MEDS ORDERED: AMLO-110 PO (12:35)
[2017-02-27] MEDS ORDERED: PSYL48.59 PO (12:35)
[2017-02-27] MEDS ORDERED: LOSA1TAB38 PO (12:35)
[2017-02-27] MEDS ORDERED: FURO-85 PO (12:35)
[2017-02-27] MEDS ORDERED: METF-384 PO (12:35)
[2017-02-27] MEDS ORDERED: NF656 EXT (19:02)
[2017-02-27] MEDS ORDERED: ONDA4TAB46 PO (19:02)
[2017-02-27] MEDS ORDERED: CYCL10TA6 PO (19:02)
== END 2017-02-26 15:43 | disposition home or self-care (01) ==
LOC: C.EDB 10:28 → C.EDC 15:43
DX: R10.31 Right lower quadrant pain (principal); Z90.49 Acquired absence of other specified parts of digestive tract; Z90.710 Acquired absence of both cervix and uterus; K21.9 Gastro-esophageal reflux disease without esophagitis; E11.9 Type 2 diabetes mellitus without complications; I10 Essential (primary) hypertension; Z79.82 Long term (current) use of aspirin; Z79.899 Other long term (current) drug therapy

== ENCOUNTER 2017-02-27 15:14 | Emergency (ER) | payer OTHER ==
[~2017-02-27] VITALS: Ht 165.1 cm; Wt 76.4 kg
[~2017-02-27 15:14] MED LIST changes: +AFLI2INJ INJ; +AMLO-110 PO; +ASPI81TA28 PO; +FURO-85 PO; +GLIP5TAB11 PO; +LOSA1TAB38 PO; +METF-384 PO; +MULT-506 PO; +PSYL48.59 PO; +RANI150T3 PO
[2017-02-27 15:21] VITALS: TEMP 36.7; Ht 165.1 cm; Wt 76.4 kg
--- NOTE | 2017-02-27 16:14 | EMERGENCY ROOM VISIT NOTE ---
History First contact with patient: 15:35 Chief Complaint: RIB PAIN Stated Complaint: PAIN IN RT SIDE OF BACK/ABDOMEN History of Present Illness The patient is a 86 year old female who presents to the Emergency Room with complaints of persistent lower back pain, for which this is her third visit to ED in 1 week. Pain felt in the right lower back with radiation to the RLQ and groin region. Described as a spasm/cramping, which is 2/10 at best and 9/10 at it's worse. Pain has no known trigger: painful on ambulation, worse when lying flat, wakes patient up from sleep. 3 episodes in the last 30 min viewed jasmyne abebe. Pain management at home: Tylenol 500mg q6-8 hr, as well as heating pad. Having nausea, but has not had vomiting. Did have a normal bowel movement yesterday, and is passing flatus. No issues with voiding and no UTI sx. History of appendectomy, cholecystectomy, and total hysterectomy. Patient denies trauma. She also denies unusual numbness/weakness in her legs, headache, change in vision, fevers, chest pain, shortness of breath, pain with urination, and melena. Was suppose to see PCP today, but he called in sick. Patient feels pain is intolerable at times. Review of Systems See HPI for pertinent positives and negatives. A total of ten systems were reviewed and were otherwise negative. Past Medical/Surgical History Medical Problems: (1) Acid reflux (2) Diabetes (3) HTN (hypertension) Surgical Problems: (1) Hx of appendectomy (2) Hx of cholecystectomy (3) Hx of hysterectomy, total Social History Smoking Status: Never Smoker Smokeless Tobacco Use: No Alcohol Use: none Drug Use: none Marital Status: Occupation Status: retired Current/Historical Medications Scheduled Aflibercept (Eylea), 1 DOSE INJ UD Amlodipine (Norvasc), 5 MG PO QAM Aspirin (Aspirin Ec), 81 MG PO DAILY Cyclobenzaprine Hcl (Flexeril), 10 MG PO TID Furosemide (Lasix), 20 MG PO QAM Lidocaine (Lidoderm Patch 5%), 1 PATCH EXT Q24H Losartan Potassium (Cozaar), 100 MG PO QAM Metformin Hcl (Glucophage), 1,000 MG PO BID Multivitamin (Multivitamin), 1 TAB PO DAILY Ocuvite Preservision (Ocuvite Preservision), 1 TAB PO BID Psyllium (Metamucil), 1 DOSE PO DAILY Scheduled PRN Glipizide (Glucotrol), 5 MG PO QAM PRN for Blood Sugar >140 Ondansetron Hcl (Zofran), 4 MG PO Q8 PRN for Nausea Ranitidine Hcl (Zantac), 150 MG PO BID PRN for Heartburn Physical Exam Vital Signs Date Time Temp Pulse Resp B/P (MAP) Pulse Ox O2 Delivery O2 Flow Rate FiO2 02/27/17 19:21 61 18 193/85 02/27/17 17:06 63 18 212/99 95 02/27/17 15:21 36.7 71 18 167/74 99 Room Air Physical Exam GENERAL: Alert, well nourished, sitting in bed, mild distress, non-toxic HEAD: NC/AT. No sinus tenderness. OROPHARYNX: no exudate, no erythema, lips, buccal mucosa, and tongue normal and mucous membranes are dry NECK: Supple, no nuchal rigidity, no adenopathy, non-tender LUNGS: Clear to auscultation. Normal chest wall mechanics, good air entry. No crepitations, crackles, or wheezes HEART: S1 and S2 normal, no murmurs CHEST: No reproducible tenderness. ABDOMEN: abdomen soft, tender on palpation of RLQ, and tenderness felt in RLQ with palpation of LLQ, normo-active bowel sounds, no masses, no rebound or guarding. BACK: Back is symmetrical on inspection, no deformities, no midline tenderness, left CVA tenderness present. SKIN: Warm, pink, dry. No erythema, rashes, or bruising. UPPER EXTREMITIES: Grossly normal. No pitting edema. Calves non tender. Strength 5/5 bilaterally. NEURO: Alert, Ox3. No focal deficits. Normal sensorium, cranial nerves II-XII grossly intact, normal speech. PSYCH: Mood and affect appropriate. Medical Decision & Procedures ER Provider Diagnostic Interpretation: Reviewed recent imaging: On CT abd/pelvis 02/22/17: 1. There is mild fullness the right renal collecting system without clear evidence of hydronephrosis. This is nonspecific and may represent the sequelae of a recently passed kidney stone. No obstructing stone is seen at the time of examination. On lumbar spine CT 02/22/17: 2. Multilevel degenerative changes with varying degrees of neural foraminal and spinal canal stenosis as detailed above. Medications Administered Medications (Trade) Dose Ordered Sig/Ajay Route Start Time Stop Time Status Last Admin Dose Admin Ondansetron HCl (Zofran Odt) 4 mg NOW STAT PO 02/27/17 17:18 02/27/17 17:22 DC 02/27/17 18:04 4 MG Cyclobenzaprine HCl (Flexeril Tab) 5 mg NOW STAT PO 02/27/17 18:11 02/27/17 18:12 DC 02/27/17 18:19 5 MG Lidocaine (Lidoderm Patch 5%) 1 patch NOW STAT TD 02/27/17 18:12 02/27/17 18:14 DC 02/27/17 19:18 1 PATCH Medical Decision Prior records/ancillary studies reviewed. Triage Nursing notes reviewed. Additional history obtained from patient and friend. The patient's history was concerning for abdominal pain. Differential diagnosis: Etiologies such as diverticulitis, PUD, biliary pathology, UTI, pancreatitis, obstruction, mesenteric ischemia, aortic pathology, infections, inflammatory bowel disease, renal colic, as well as others were entertained. Physical examination findings: As above. ER treatment provided: ODT Zofram, lidoderm patch, PO Flexeril On reassessment the patient felt better. Diagnostics interpreted by me: No new work up done, since were done 1 day prior Consultation: Findings consistent with renal colic. By the evaluation outlined above emergent etiologies such as diverticulitis, PUD , biliary pathology, UTI, pancreatitis, obstruction, mesenteric ischemia, aortic pathology, infections, inflammatory bowel disease as well as others were deemed relatively unlikely. The patient and friend informed about the findings as listed above. All questions were answered and they were pleased with the treatment. Return instructions were outlined and the patient was discharged in stable condition. Outpatient prescription management: Lidoderm, Zofran, Flexeril Outpatient referral to urology and back specialist. Referral: The patient was referred back to their primary care physician for follow-up in 2 to 3 days for a recheck of the current condition. Impression Primary Impression: Renal colic on right side Additional Impression: Degenerative lumbar spinal stenosis Departure Information Dispostion Home / Self-Care Condition GOOD Prescriptions Cyclobenzaprine Hcl (FLEXERIL) 10 Mg Tab 10 MG PO TID for Muscle Spasms, #15 TAB May cause sedation, do not use prior to driving Prov: Alka. Dubois MD 02/27/17 Lidocaine (Lidoderm Patch 5%) 1 Ea Tdsy 1 PATCH EXT Q24H, #5 PATCH Prov: Alka. Dubois MD 02/27/17 Ondansetron Hcl (ZOFRAN) 4 Mg Tab 4 MG PO Q8 Y for Nausea, #15 TAB Apply for 12 hours, remove for 12 hours Prov: Alka. Dubois MD 02/27/17 Referrals No Doctor, Assigned (PCP) Patient Instructions [facility] Resident Tracking Resident Involvement: Resident Care Provided Care Provided: Adult ED Problem Qualifiers
[2017-02-27 17:06] VITALS: O2SAT 95
[2017-02-27] MEDS ORDERED: ONDANSETRON 4MG OD TAB PO STA (17:18)
[2017-02-27] MEDS ORDERED: CYCLOBENZAPRINE HCL 5 MG TAB PO STA (18:11)
[2017-02-27] MEDS ORDERED: LIDODERM (LIDOCAINE) PATCH 5% TD STA (18:12)
--- NOTE | 2017-02-27 18:14 | EMERGENCY ROOM VISIT NOTE ---
History Report prepared by Kathieibviolet: Mat Jacobo Under the Supervision of: Dr. James Mccormack M.D. First contact with patient: 15:35 Chief Complaint: ABDOMINAL PAIN Stated Complaint: PAIN IN RT SIDE OF BACK/ABDOMEN History of Present Illness The patient is an 86 year old female who presents to the Emergency Room with complaints of worsening pain in the right lower abdominal quadrant. The patient states that she has been experiencing pain in her right lower back and right abdomen for the past week, but it began to worsen this morning at 0430, 7 hours prior to arrival. The pain is now radiating into the right groin as well. She also complains of some nausea, but has not experienced any vomiting. The patient did have a normal bowel movement today, and is not having any difficulty urinating. The patient has had appendicitis in the past and states that this feels similar. However the patient has a surgical history including appendectomy, cholecystectomy, and total hysterectomy. She also denies unusual numbness/weakness in her legs, headache, change in vision, fevers, chest pain, shortness of breath, pain with urination, and melena. The patient has no history of shingles. Third visit to ED With right back pain radiating to lower abdomen and pelvic region. No trauma. Intractable pain. Pain on ambulation. Pain worse when lying flat.Wakes up from sleep. Feels like a spasm/cramping. 2/10 at best. 9/10 at it's worst. 3 episodes in the last 30 min. No known trigger. Pain management at home: Tylenol 500mg q6-8 hr, as well as heating pad. No trauma Was suppose to see PCP today, but he called in sick. Source of History: patient Onset: Past week Position: abdomen (RLQ) Timing: worsening Associated Symptoms: + nausea, + back pain (right lower), No fevers, No headache, No chest pain, No SOB, No vomiting, No melena, No urinary symptoms, No weakness, No numbness Review of Systems See HPI for pertinent positives & negatives. A total of 10 systems reviewed and were otherwise negative. Past Medical & Surgical Medical Problems: (1) Acid reflux (2) Diabetes (3) HTN (hypertension) Surgical Problems: (1) Hx of appendectomy (2) Hx of cholecystectomy (3) Hx of hysterectomy, total Family History No pertinent family history stated. Social History Smoking Status: Never Smoker Drug Use: none Marital Status: Occupation Status: retired Current/Historical Medications Scheduled Aflibercept (Eylea), 1 DOSE INJ UD Amlodipine (Norvasc), 5 MG PO QAM Aspirin (Aspirin Ec), 81 MG PO DAILY Cyclobenzaprine Hcl (Flexeril), 10 MG PO TID Furosemide (Lasix), 20 MG PO QAM Lidocaine (Lidoderm Patch 5%), 1 PATCH EXT Q24H Losartan Potassium (Cozaar), 100 MG PO QAM Metformin Hcl (Glucophage), 1,000 MG PO BID Multivitamin (Multivitamin), 1 TAB PO DAILY Ocuvite Preservision (Ocuvite Preservision), 1 TAB PO BID Psyllium (Metamucil), 1 DOSE PO DAILY Scheduled PRN Glipizide (Glucotrol), 5 MG PO QAM PRN for Blood Sugar >140 Ondansetron Hcl (Zofran), 4 MG PO Q8 PRN for Nausea Ranitidine Hcl (Zantac), 150 MG PO BID PRN for Heartburn Allergies Coded Allergies: No Known Allergies (Unverified , 02/22/17) Physical Exam Vital Signs Date Time Temp Pulse Resp B/P (MAP) Pulse Ox O2 Delivery O2 Flow Rate FiO2 02/27/17 19:21 61 18 193/85 02/27/17 17:06 63 18 212/99 95 02/27/17 15:21 36.7 71 18 167/74 99 Room Air Physical Exam GENERAL: Patient is a healthy-appearing well-nourished female. Patient can walk on tip toes and heels. HEAD: Normocephalic atraumatic EYES: Ocular movements intact pupils equal and react to light OROPHARYNX mucous membranes are moist no exudates present no erythema or edema present NECK: Supple no nuchal rigidity CHEST: Good equal expansion LUNGS: Clear and equal to auscultation CARDIAC: Normal S1 and S2 ABDOMEN: Soft nontender no guarding. I cannot palpate pain to right abdomen area. BACK: No CVA tenderness. Right lower flank muscle spasms. EXTREMITIES: No pain upon palpation normal muscle strength in all groups no clubbing cyanosis or edema NEURO: Patient is following commands and answering questions appropriately. Alert and oriented x3 Cranial Nerves 2-12 grossly intact Medical Decision & Procedures Medications Administered Medications (Trade) Dose Ordered Sig/Ajay Route Start Time Stop Time Status Last Admin Dose Admin Ondansetron HCl (Zofran Odt) 4 mg NOW STAT PO 02/27/17 17:18 02/27/17 17:22 DC 02/27/17 18:04 4 MG Cyclobenzaprine HCl (Flexeril Tab) 5 mg NOW STAT PO 02/27/17 18:11 02/27/17 18:12 DC 02/27/17 18:19 5 MG Lidocaine (Lidoderm Patch 5%) 1 patch NOW STAT TD 02/27/17 18:12 02/27/17 18:14 DC 02/27/17 19:18 1 PATCH ED Course 1556: Past medical records reviewed. The patient was evaluated in room A3. A complete history and physical examination was performed. 1718: Zofran Odt 4 mg PO 1800: Lidocaine 1 patch TD, Flexeril Tab 5 mg PO, Flexeril Tab 5 mg PO. 1920: Upon reexamination the patient is resting comfortably. I discussed results and treatment plan with the patient. She verbalizes agreement and understanding. The patient is ready for discharge. Medical Decision Differential diagnosis: Etiologies such as appendicitis, diverticulitis, PUD, biliary pathology, UTI, pancreatitis, obstruction, mesenteric ischemia, aortic pathology, infections, inflammatory bowel disease, renal colic, as well as others were entertained. Resident Physician Supervision Note: I interviewed and examined the patient. Discussed with Dr. Dubois and agree with findings and plan as documented in the note. Documented By: James Mccormack Impression Primary Impression: Flank pain, acute Scribe Attestation The scribe's documentation has been prepared under my direction and personally reviewed by me in its entirety. I confirm that the note above accurately reflects all work, treatment, procedures, and medical decision making performed by me. Departure Information Dispostion Home / Self-Care Prescriptions Cyclobenzaprine Hcl (FLEXERIL) 10 Mg Tab 10 MG PO TID for Muscle Spasms, #15 TAB May cause sedation, do not use prior to driving Prov: Alka. Dubois MD 02/27/17 Lidocaine (Lidoderm Patch 5%) 1 Ea Tdsy 1 PATCH EXT Q24H, #5 PATCH Prov: Alka. Dubois MD 02/27/17 Ondansetron Hcl (ZOFRAN) 4 Mg Tab 4 MG PO Q8 Y for Nausea, #15 TAB Apply for 12 hours, remove for 12 hours Prov: Alka. Dubois MD 02/27/17 Referrals No Doctor, Assigned (PCP) Forms HOME CARE DOCUMENTATION FORM, IMPORTANT VISIT INFORMATION Patient Instructions My [facility] Additional Instructions You were seen in the ER today for onging acute back pain radiating to the pelvic region. Labs done previously were within normal limits. CT imaging shows ureter dilation as well as extensive degenerative spine changes. On discharge, medication has been prescribed to aid with pain management. Zofran can be taken for nausea when needed, Flexeril can be taken for muscle spasm when needed (be careful, this medication may make you drowzy) and lidocaine patches have been prescribed for localized pain. You are also being arranged to follow up with a urologist and a certification and selection specialist as an outpatient. You have been examined and treated today on an emergency basis only. This is not a substitute for, or an effort to provide, complete comprehensive medical care. It is impossible to recognize and treat all injuries or illnesses in a single emergency department visit. It is therefore important that you make a follow up with your physician for close monitoring. Return to the ER immediately for worsening or persistent dizziness, vomiting, headache, fevers, chest pains, difficulty breathing, black or bloody stools, slurred speech, numbness, weakness, visual changes, worsening of your condition , or as needed.
[2017-02-27] MEDS ORDERED: ONDA4TAB46 PO (19:02)
[2017-02-27] MEDS ORDERED: CYCL10TA6 PO (19:02)
[2017-02-27] MEDS ORDERED: NF656 EXT (19:02)
[2017-02-27 19:21] VITALS: BP 193/85; PULSE 61
[2017-02-27] MEDS ORDERED: CYCLOBENZAPRINE HCL 5 MG TAB PO SCH (21:00)
[2017-02-28] MEDS ORDERED: LIDODERM (LIDOCAINE) PATCH 5% TD SCH (09:00)
== END 2017-02-27 19:40 | disposition home or self-care (01) ==
LOC: C.EDB 15:17 → C.EDA 19:40
DX: R10.9 Unspecified abdominal pain (principal); K21.9 Gastro-esophageal reflux disease without esophagitis; E11.9 Type 2 diabetes mellitus without complications; I10 Essential (primary) hypertension; Z79.82 Long term (current) use of aspirin; Z79.899 Other long term (current) drug therapy

== ENCOUNTER → 2017-03-06 | Outpatient (CLI) | payer OTHER ==
[~2017-03-06] MED LIST changes: -ASPCH81X PO; +CYCL10TA6 PO; -GLUC-221; -MULT-614 PO; +NF656 EXT; +ONDA4TAB46 PO
== END | disposition home or self-care (01) ==
LOC: C.LABSPEC 16:54
PROVIDERS: ATTEND Nurse Practitioner Adult Health
DX: R10.9 Unspecified abdominal pain (principal)

== ENCOUNTER → 2017-03-14 | Outpatient (CLI) | payer OTHER ==
[~2017-03-14] MED LIST changes: -CYCL10TA6 PO; +OPTIRAY 300 IV PRN
--- NOTE | 2017-03-14 12:26 | DIAGNOSTIC IMAGING REPORT ---
ABDOMEN ULTRASOUND FOR HERNIA CLINICAL HISTORY: R10.31 Abdominal pain, RLQ (right lower quadrant)R/O [id number] COMPARISON STUDY: Abdomen and pelvis CT 02/26/2017. FINDINGS: Transabdominal scanning of the right lower quadrant was performed. No hernia identified. No masses or fluid collections. IMPRESSION: No hernia identified within the right lower quadrant. Electronically signed by: Jaxon Ozuna M.D. 03/14/2017 12:25 PM Dictated Date/Time: 03/14/2017 12:24 PM
--- NOTE | 2017-03-14 13:36 | DIAGNOSTIC IMAGING REPORT ---
IV PYELOGRAM CLINICAL HISTORY: 86-year-old female with history of right lower quadrant pain, concern for hydronephrosis. COMPARISON STUDY:CT from 03/08/2017. TECHNIQUE: An abdominal sediment remediation consultant radiograph is performed. IVP pyelogram was then performed following the IV administration of 100 mL of Optiray 300, tomographic images are acquired in the corticomedullary and excretory phases of enhancement. Overhead views of the renal collecting system and bladder were obtained in multiple obliquities both pre and post void. FINDINGS: Initial sediment remediation consultant radiograph demonstrates cholecystectomy clips. Degenerative changes of the lumbar spine. Moderate stool burden. Nonobstructive bowel gas pattern. No gross calcifications project over the kidneys allowing for the presence of stool and gas. Lung bases clear. After intravenous contrast menstruation, normal excretion of contrast into the bilateral renal collecting systems. No hydronephrosis. No filling defect within the renal collecting systems. Normal opacification of the nondilated ureters. Limited evaluation of the distal ureters secondary to poor opacification. Within this limitation, no evidence of filling defect within the proximal to mid ureters. The bladder opacifies normally. No gross filling defect within the bladder. No significant post void residual volume. IMPRESSION: No hydronephrosis or evidence of an obstructing mass or calculus in the bilateral collecting systems. Electronically signed by: Raymond Velazquez M.D. 03/14/2017 1:35 PM Dictated Date/Time: 03/14/2017 1:32 PM
== END | disposition home or self-care (01) ==
LOC: C.ULTR 11:37
PROVIDERS: ATTEND Nurse Practitioner Adult Health
DX: R10.31 Right lower quadrant pain (principal)

== ENCOUNTER → 2017-03-16 | Outpatient (CLI) | payer OTHER ==
[~2017-03-16] MED LIST changes: -OPTIRAY 300 IV PRN
[2017-03-16 12:45] LABS: BLOOD UREA NITROGEN 16 mg/dl (7-18); BUN/CREATININE RATIO 20.6 (10-20); CREATININE 0.78 mg/dl (0.60-1.20)
== END | disposition home or self-care (01) ==
LOC: C.LABPBG 09:08
PROVIDERS: ATTEND Family Medicine
DX: R10.9 Unspecified abdominal pain (principal)

== ENCOUNTER → 2017-04-10 | Outpatient (CLI) | payer OTHER ==
[2017-04-10 12:17] LABS: ALT/SGPT 17 U/L (12-78); BLOOD UREA NITROGEN 18 mg/dl (7-18); BUN/CREATININE RATIO 21.4 (10-20); CALCIUM 9.5 mg/dl (8.5-10.1); CARBON DIOXIDE 29 mmol/L (21-32); CHLORIDE 103 mmol/L (98-107); CHOLESTEROL 192 mg/dl (0-200); CREATININE 0.85 mg/dl (0.60-1.20); GLUCOSE 103 mg/dl (70-99); SODIUM 140 mmol/L (136-145); TRIGLYCERIDES 202 mg/dl (0-150); VERY LOW DENSITY LIPOPROT CALC 40 mg/dl
[2017-04-10 12:28] LABS: ALB/GLOB RATIO 1.1 (0.9-2); ALKALINE PHOSPHATASE 67 U/L (45-117); AST/SGOT 17 U/L (15-37); CHOLESTEROL/HDL RATIO 3.9; HDL CHOLESTEROL 49 mg/dl; LDL CHOLESTEROL CALCULATED 103 mg/dl
[2017-04-10 12:30] LABS: RATIO 18.9 mcg/mg (0-30.0)
[2017-04-10 12:44] LABS: ESTIMATED AVERAGE GLUCOSE 143 mg/dl; HA1C FLAG Normal (Normal)
== END | disposition home or self-care (01) ==
LOC: C.LABPBG 08:52
PROVIDERS: ATTEND Family Medicine
DX: E11.9 Type 2 diabetes mellitus without complications (principal); E78.5 Hyperlipidemia, unspecified; I10 Essential (primary) hypertension

== ENCOUNTER → 2017-10-09 | Outpatient (CLI) | payer OTHER ==
[~2017-10-09] MED LIST changes: -ONDA4TAB46 PO
[2017-10-09 13:29] LABS: HEMOGLOBIN A1C 6.8 % (4.5-5.6)
== END | disposition home or self-care (01) ==
LOC: C.LABPBG 08:41
PROVIDERS: ATTEND Family Medicine
DX: E11.9 Type 2 diabetes mellitus without complications (principal)

== ENCOUNTER 2017-11-24 17:07 | Emergency (ER) | payer OTHER ==
[~2017-11-24] VITALS: Ht 162.6 cm; Wt 84.9 kg
[2017-11-24 17:16] VITALS: TEMP 37.4; Ht 162.6 cm; Wt 84.9 kg
[2017-11-24] MEDS ORDERED: ASPIRIN 81 MG CHEW PO STA (17:48)
[2017-11-24 17:51] VITALS: O2SAT 98
[2017-11-24 17:57] LABS: BASO % 0.3 %; BASO ABS # 0.02 K/uL (0-0.2); EOS % 0.7 %; EOS ABS # 0.05 K/uL (0-0.5); HEMATOCRIT 33.8 % (37-47); HEMOGLOBIN 11.4 g/dL (12.0-16.0); IG# 0.01 K/uL (0.00-0.02); LYMPH % 32.6 %; MEAN CELL VOLUME 85.1 fL (80-100); MEAN CORPUSCULAR HEMOGLOBIN 28.7 pg (25-34); MEAN CORPUSCULAR HGB CONC 33.7 g/dl (32-36); MEAN PLATELET VOLUME 9.7 fL (7.4-10.4); MONO % 5.7 %; NEUT % 60.6 %; NEUT ABS # 4.28 K/uL (1.4-6.5); PLATELET COUNT 303 K/uL (130-400); RED CELL DISTRIBUTION WIDTH CV 14.4 % (11.5-14.5); RED CELL DISTRIBUTION WIDTH SD 45.1 fL (36.4-46.3); WHITE BLOOD COUNT 7.06 K/uL (4.8-10.8)
[2017-11-24] MEDS ORDERED: MULT-190 PO (18:02)
--- NOTE | 2017-11-24 18:08 | DIAGNOSTIC IMAGING REPORT ---
CHEST ONE VIEW PORTABLE CLINICAL HISTORY: 86 years-old Female presenting with chest pain. TECHNIQUE: Portable upright AP view of the chest was obtained. COMPARISON: 10/01/2016. FINDINGS: Atherosclerosis of the aortic arch. Cardiac silhouette normal in size. Mildly low lung volumes. Minimal left basilar opacity. No large effusion or pneumothorax. Degenerative changes of the thoracic spine. Upper abdomen normal. IMPRESSION: 1. Minimal left basilar atelectasis. No other convincing evidence of acute cardiopulmonary disease. Electronically signed by: Raymond Velazquez M.D. 11/24/2017 6:07 PM Dictated Date/Time: 11/24/2017 6:05 PM
[2017-11-24 18:29] LABS: ALBUMIN 4.2 gm/dl (3.4-5.0); ALKALINE PHOSPHATASE 73 U/L (45-117); ALT/SGPT 20 U/L (12-78); AST/SGOT 24 U/L (15-37); BLOOD UREA NITROGEN 18 mg/dl (7-18); CALCIUM 9.1 mg/dl (8.5-10.1); CARBON DIOXIDE 27 mmol/L (21-32); CREATININE 0.97 mg/dl (0.60-1.20); GLUCOSE 107 mg/dl (70-99); SODIUM 137 mmol/L (136-145); TOTAL PROTEIN 8.2 gm/dl (6.4-8.2)
--- NOTE | 2017-11-24 18:49 | EMERGENCY ROOM VISIT NOTE ---
History Report prepared by Waldo: Amalia Cornejo Under the Supervision of: Dr. Richelle Perez M.D. First contact with patient: 17:36 Chief Complaint: CHEST PAIN Stated Complaint: CHEST PAINS Nursing Triage Summary: pt reports midsternal cp that has been intemittent X 10 days . some relief after taking zantac and tums . pt denies sob , ALEJO or NV pt reports I was to urgent care today and they sent me here for eval and tx. History of Present Illness The patient is an 86 year old female who presents to the Emergency Room with complaints of worsening chest pain starting 10 days ago. The patient states that it is midsternal and goes down to her stomach. She reports that she has a history of GERD and thought it was that. She states that she started taking Zantac twice a day for it with some relief. She states that the pain in her chest became worse last night. She reports that she went to Urgent Care in [place]. She states that they thought it was GERD, but recommended her to come to the ED. The patient notes that she has been drinking orange juice every morning and recently ate tomatoes, which is not normal for her. The patient denies heart problems, the pain radiating into her arms, radiating into her jaw , back pain, difficulty breathing, chest pain upon exertion, and taking any extra Tylenol or Aspirin. She notes that she took one baby Aspirin this morning. Source of History: patient Onset: 10 days ago Position: chest Quality: other ("similar to GERD episodes") Timing: worsening Associated Symptoms: No chest pain (on exertion), No SOB, No back pain Note: The patient denies the pain radiating into her arms and radiating into her jaw. Review of Systems See HPI for pertinent positives & negatives. A total of 10 systems reviewed and were otherwise negative. Past Medical & Surgical Medical Problems: (1) Acid reflux (2) Diabetes (3) HTN (hypertension) Surgical Problems: (1) Hx of appendectomy (2) Hx of cholecystectomy (3) Hx of hysterectomy, total Family History No pertinent family history Social History Smoking Status: Never Smoker Alcohol Use: none Drug Use: none Marital Status: Occupation Status: retired Current/Historical Medications Scheduled Aflibercept (Eylea), 1 DOSE INJ UD Amlodipine (Norvasc), 5 MG PO QAM Aspirin (Aspirin Ec), 81 MG PO DAILY Furosemide (Lasix), 20 MG PO QAM Losartan Potassium (Cozaar), 100 MG PO QAM Metformin Hcl (Glucophage), 1,000 MG PO BID Multivitamin (Multivitamin), 1 TAB PO DAILY Ocuvite Preservision (Ocuvite Preservision), 1 TAB PO BID Ocuvite Preservision (Ocuvite Preservision), 1 TAB PO BID Psyllium (Metamucil), 1 DOSE PO DAILY Scheduled PRN Glipizide (Glucotrol), 5 MG PO QAM PRN for Blood Sugar >140 Ranitidine Hcl (Zantac), 150 MG PO BID PRN for Heartburn Allergies Coded Allergies: No Known Allergies (Unverified , 11/24/17) Physical Exam Vital Signs Date Time Temp Pulse Resp B/P (MAP) Pulse Ox O2 Delivery O2 Flow Rate FiO2 11/24/17 20:44 88 18 163/89 99 11/24/17 19:38 84 18 167/100 99 Room Air 11/24/17 18:43 73 11/24/17 18:08 68 20 166/86 99 Room Air 11/24/17 17:51 98 Room Air 11/24/17 17:16 37.4 75 20 188/82 99 Room Air Physical Exam Vital signs reviewed. General: Well-appearing, in no significant distress. HEENT: No scleral icterus, PERRLA, neck supple. Atraumatic. Cardiovascular: Regular rate and rhythm, no extra sounds. Pulmonary: Clear to auscultation bilaterally, normal work of breathing. Abdomen: Soft, nontender, nondistended, positive bowel sounds. Musculoskeletal: Atraumatic, no peripheral edema. Neurologic: Patient awake alert and oriented x 3 Skin: Warm, dry, no rash Medical Decision & Procedures ER Provider Diagnostic Interpretation: Radiology results as stated below per my review and radiologist interpretation: CHEST ONE VIEW PORTABLE CLINICAL HISTORY: 86 years-old Female presenting with chest pain. TECHNIQUE: Portable upright AP view of the chest was obtained. COMPARISON: 10/01/2016. FINDINGS: Atherosclerosis of the aortic arch. Cardiac silhouette normal in size. Mildly low lung volumes. Minimal left basilar opacity. No large effusion or pneumothorax. Degenerative changes of the thoracic spine. Upper abdomen normal. IMPRESSION: 1. Minimal left basilar atelectasis. No other convincing evidence of acute cardiopulmonary disease. Electronically signed by: Raymond Velazquez M.D. 11/24/2017 6:07 PM Dictated Date/Time: 11/24/2017 6:05 PM Laboratory Results 11/24/17 17:45 Red Blood Count 3.97, Mean Corpuscular Volume 85.1, Mean Corpuscular Hemoglobin 28.7, Mean Corpuscular Hemoglobin Concent 33.7, Mean Platelet Volume 9.7, Neutrophils (%) (Auto) 60.6, Lymphocytes (%) (Auto) 32.6, Monocytes (%) (Auto) 5.7, Eosinophils (%) (Auto) 0.7, Basophils (%) (Auto) 0.3, Neutrophils # (Auto) 4.28, Lymphocytes # (Auto) 2.30, Monocytes # (Auto) 0.40, Eosinophils # (Auto) 0.05, Basophils # (Auto) 0.02 11/24/17 17:45 Test 11/24/17 17:45 11/24/17 19:00 11/24/17 19:42 White Blood Count 7.06 K/uL (4.8-10.8) Red Blood Count 3.97 M/uL (4.2-5.4) Hemoglobin 11.4 g/dL (12.0-16.0) Hematocrit 33.8 % (37-47) Mean Corpuscular Volume 85.1 fL (80-100) Mean Corpuscular Hemoglobin 28.7 pg (25-34) Mean Corpuscular Hemoglobin Concent 33.7 g/dl (32-36) Platelet Count 303 K/uL (130-400) Mean Platelet Volume 9.7 fL (7.4-10.4) Neutrophils (%) (Auto) 60.6 % Lymphocytes (%) (Auto) 32.6 % Monocytes (%) (Auto) 5.7 % Eosinophils (%) (Auto) 0.7 % Basophils (%) (Auto) 0.3 % Neutrophils # (Auto) 4.28 K/uL (1.4-6.5) Lymphocytes # (Auto) 2.30 K/uL (1.2-3.4) Monocytes # (Auto) 0.40 K/uL (0.11-0.59) Eosinophils # (Auto) 0.05 K/uL (0-0.5) Basophils # (Auto) 0.02 K/uL (0-0.2) RDW Standard Deviation 45.1 fL (36.4-46.3) RDW Coefficient of Variation 14.4 % (11.5-14.5) Immature Granulocyte % (Auto) 0.1 % Immature Granulocyte # (Auto) 0.01 K/uL (0.00-0.02) Anion Gap 9.0 mmol/L (3-11) Est Creatinine Clear Calc Drug Dose 45.5 ml/min Estimated GFR () 62.2 Estimated GFR (Non- 53.6 BUN/Creatinine Ratio 18.2 (10-20) Calcium Level 9.1 mg/dl (8.5-10.1) Magnesium Level 1.8 mg/dl (1.8-2.4) Total Bilirubin 0.6 mg/dl (0.2-1) Direct Bilirubin mg/dl (0-0.2) Aspartate Amino Transf (AST/SGOT) 24 U/L (15-37) Alanine Aminotransferase (ALT/SGPT) 20 U/L (12-78) Alkaline Phosphatase 73 U/L (45-117) Total Protein 8.2 gm/dl (6.4-8.2) Albumin 4.2 gm/dl (3.4-5.0) Chemistry Specimen Hemolysis Urine Color YELLOW Urine Appearance CLEAR (CLEAR) Urine pH 7.5 (4.5-7.5) Urine Specific [place] 1.009 (1.000-1.030) Urine Protein NEG (NEG) Urine Glucose (UA) NEG (NEG) Urine Ketones NEG (NEG) Urine Occult Blood NEG (NEG) Urine Nitrite NEG (NEG) Urine Bilirubin NEG (NEG) Urine Urobilinogen NEG (NEG) Urine Leukocyte Esterase NEG (NEG) Troponin I < 0.015 ng/ml (0-0.045) Laboratory results per my review. Medications Administered Medications (Trade) Dose Ordered Sig/Ajay Route Start Time Stop Time Status Last Admin Dose Admin Aspirin (Aspirin Chew) 243 mg NOW STAT PO 11/24/17 17:48 11/24/17 17:51 DC 11/24/17 18:08 243 MG ECG Per My Interpretation Indication: chest pain Rate (beats per minute): 84 Rhythm: sinus with SA Findings: no acute ischemic change, other (qt-c [id number]) ED Course 174: Past medical records reviewed. The patient was evaluated in room C11B. A complete history and physical examination was performed. 1747: Ordered Aspirin 243 mg PO. 2007: Upon reevaluation, the patient appeared to have improvement of her symptoms. I discussed findings with her. She verbalized agreement of the treatment plan. The patient was discharged home. Medical Decision Differential diagnosis: Etiologies such as cardiac ischemia, aortic dissection, pulmonary embolism, pneumonia, pneumothorax, musculoskeletal, infections, pericarditis, myocarditis , esophageal rupture, gastrointestinal, as well as others were entertained. This patient was evaluated and appeared to be in no significant distress. IV access was obtained and laboratory work was drawn. Patient was placed on the deputy coroner and found to be in a normal sinus rhythm. EKG reveals no evidence of acute ischemia. Patient was given 3 baby aspirin to chew as she had taken one earlier today. Chest x-ray was performed and reveals left basilar atelectasis, is negative for acute pathology. Patient's cardiac troponin 2 is negative. I do suspect the patient is likely suffering from some gastritis given her increase in acidic foods recently. She was advised to continue Zantac as prescribed. She will discuss the aspirin therapy with her physician as it may be aggravating her gastritis. I do not think the patient is suffering from ACS at this time. She may require further cardiac testing as an outpatient. She was advised to return to the ER for worsening of symptoms or any medical concerns. Medication Reconcilliation Current Medication List: was personally reviewed by me Blood Pressure Screening Patient's blood pressure: Elevated blood pressure Blood pressure disposition: Referred to PCP Impression Primary Impression: Chest pain due to GERD Scribe Attestation The scribe's documentation has been prepared under my direction and personally reviewed by me in its entirety. I confirm that the note above accurately reflects all work, treatment, procedures, and medical decision making performed by me. Departure Information Dispostion Home / Self-Care Referrals Eloisa Thompson DO (PCP) Forms HOME CARE DOCUMENTATION FORM, IMPORTANT VISIT INFORMATION Patient Instructions [facility] Additional Instructions Diagnosis: Chest pain, GERD Continue your Zantac as prescribed. Minimize the acidic foods in your diet such as tomatoes and orange juice. Follow-up with your physician regarding your blood pressure and discuss the aspirin therapy. This may be aggravating your gastritis. Follow-up with your doctor within the next several days. Return to the ER for worsening of symptoms or any medical concerns
[2017-11-24 20:44] VITALS: BP 163/89; PULSE 88; O2SAT 99
== END 2017-11-24 20:44 | disposition home or self-care (01) ==
LOC: C.EDB 17:08 → C.EDC 20:44
DX: R07.9 Chest pain, unspecified (principal); K21.9 Gastro-esophageal reflux disease without esophagitis; E11.9 Type 2 diabetes mellitus without complications; I10 Essential (primary) hypertension; Z79.82 Long term (current) use of aspirin; Z79.899 Other long term (current) drug therapy; Z79.84 Long term (current) use of oral hypoglycemic drugs